=== PATIENT | male | born 1980 | race African-American/Black ===

== ENCOUNTER 2020-02-02 00:27 | Emergency (ER) | payer BC ==
[2020-02-02 00:38] VITALS: BP 130/71; PULSE 75; RESP 18; TEMP 98.1
--- NOTE | 2020-02-02 01:05 | XR ---
EXAMINATION TYPE: XR chest 2V DATE OF EXAM: 02/02/2020 COMPARISON: NONE HISTORY: Coughing up blood TECHNIQUE: 2 views FINDINGS: There are calcified multiple granulomata in the mid and upper lung medrano. There is no pulm onary consolidation. Heart and mediastinum are normal. There are no hilar masses. There is no pleural effusion. Bony thorax is intact. IMPRESSION: Old granulomatous disease. No acute lung disease.
--- NOTE | 2020-02-02 01:36 | ED ---
General Adult HPI - General Chief complaint: ENT Stated complaint: Coughing up blood Time Seen by Provider: 02/02/20 00:44 Source: patient Mode of arrival: ambulatory Limitations: no limitations - History of Present Illness Initial comments: 39-year-old male patient presents to the emergency department today for evaluation of hemoptysis. Patient states around midnight he felt a rattling in his chest. States he started to cough and had presence of bright red blood. Patient states that he was feeling well throughout the day. He denies any shortness of breath or chest pain with this. Denies history of hemoptysis. 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 He denies any obvious nosebleeds. Denies any nausea, vomiting, or abdominal pain. Denies use of anticoagulant or antiplatelet medications. Patient states he is otherwise healthy though he has had malaria in the past. Denies smoking cigarettes. Patient denies any recent rash, fever, chills, diarrhea, constipation, back pain, numbness, tingling, dizziness, weakness, hematuria, dysuria, urinary u rgency, urinary frequency, headache, visual changes, or any other complaints. Patient is originally from the [facility]. Denies any recent travel out of the country. Has had multiple negative chest xrays as a result of TB testing for his job. - Related Data Allergies Allergy/AdvReac Type Severity Reaction Status Date / Time quinine AdvReac Rash/Hives Verified 02/02/20 00:39 Review of Systems ROS Statement: Those systems with pertinent positive or pertinent negative responses have been documented in the HPI. ROS Other: All systems not noted in ROS Statement are negative. Past Medical History Past Medical History: No Reported History History of Any Multi-Drug Resistant Organisms: None Reported Past Surgical History: Hernia Repair Past Psychological History: PTSD Smoking Status: Former smoker Past Alcohol Use History: Occasional Past Drug Use History: None Reported General Exam Limitations: no limitations General appearance: alert, in no apparent distress, other (Physical well- developed, well-nourished adult male patient in no acute distress. Vital signs upon presentation are temperature 98.1F, pulse 75, respirations 18, blood pressure 130/71, pulse ox 97% on room air.) Respiratory exam: Present: normal lung sounds bilaterally. Absent: respiratory distress, wheezes, rales, rhonchi, stridor Cardiovascular Exam: Present: regular rate, normal rhythm, normal heart sounds. Absent: systolic murmur, diastolic murmur, rubs, gallop, clicks GI/Abdominal exam: Present: soft, normal bowel sounds. Absent: distended, tenderness, guarding, rebound, rigid Neurological exam: Present: alert, oriented X3, CN II-XII intact Psychiatric exam: Present: normal affect, normal mood Skin exam: Present: warm, dry, intact, normal color. Absent: rash Course Vital Signs 02/02/20 00:31 Temperature 98.1 F Pulse Rate 75 Respiratory 18 Rate Blood Pressure 130/71 O2 Sat by Pulse 97 Oximetry Medical Decision Making - Medical Decision Making 39-year-old male patient presented to the emergency department today for evaluation of hemoptysis. Physical examination were clear equal lung sounds. Patient is resting comfortably in bed with no signs of respiratory distress. Vital signs are within normal ranges including oxygen saturation. Patient states his last episode of hemoptysis was about 40 minutes prior to arrival. Chest x-ray was obtained and showed no acute abnormalities. I did discuss findings and results with the patient. He is still feeling quite well after resting in the ER for a little over an hour. He will be discharged home to follow-up with his primary care physician for recheck in 1-2 days. He is instructed to return immediately if his hemoptysis continues or if he develops any new symptoms. Return parameters were discussed in detail. He verbalizes understanding and agrees with this plan. - Radiology Data Radiology results: report reviewed, image reviewed Two-view x-ray of the chest is obtained. Her pressure in its entirety. Impression by Dr. Del Real shows old granulomatous disease. No acute lung disease. Disposition Clinical Impression: Hemoptysis Disposition: HOME SELF-CARE Condition: Good Instructions (If sedation given, give patient instructions): Hemoptysis (ED) Additional Instructions: Follow up with your primary care physician for recheck in 1-2 days. Return to the emergency department immediately for any new, worsening, or concerning symptoms. Is patient prescribed a controlled substance at d/c from ED?: No Referrals: Felix Robert MD [Primary Care Provider] - 1-2 days Time of Disposition: 01:36
== END 2020-02-02 01:42 | disposition home or self-care (01) ==
LOC: EC 00:27
DX: R04.2 Hemoptysis (principal); Z88.8 Allergy status to other drugs, medicaments and biological substances; Z87.891 Personal history of nicotine dependence
CPT/HCPCS: 71046; 99283